=== PATIENT | male | born 1975 | race Caucasian/White ===

== ENCOUNTER 2021-03-04 06:51 | Emergency (ER) | payer OTHER ==
[2021-03-04 07:21] LABS: Absolute Lymphocytes (CBC) 0.9 K/uL (0.7-4.9); Basophils % 0.5 % (0-1.3); Hematocrit 45.7 % (39.6-49.0); Lymphocytes % 5.7 % (15.3-44.8); MPV 8.2 fL (7.6-11.3); RBC Red Blood Cell Count 5.17 M/uL (4.33-5.43)
[2021-03-04 07:29] LABS: Protime INR 1.21
[2021-03-04 07:44] LABS: Albumin 2.4 g/dL (3.4-5.0); Bilirubin Direct 0.6 mg/dL (0-0.2); Bilirubin Total 1.1 mg/dL (0.2-1.0); Potassium 3.8 mmol/L (3.5-5.1); Protein, Total 6.9 g/dL (6.4-8.2); Troponin (Emerg Dept Use Only) 0.05 ng/mL (0.0-0.045)
--- NOTE | 2021-03-04 08:13 | RAD REPORT ---
EXAM DESCRIPTION: RAD - Chest Single View - 03/04/2021 8:07 am CLINICAL HISTORY: SOB COMPARISON: No comparisons FINDINGS: Mild diffuse bilateral airspace opacities. The heart size is within normal limits.No acute osseous abnormality. No significant pleural effusions or pneumothorax. IMPRESSION: Mild airspace disease bilaterally could reflect either edema or pneumonia.
[2021-03-04] MEDS ORDERED: NA CHLORIDE 0.9% 2,000 ML ONE (08:57)
[2021-03-04] MEDS ORDERED: dexAMETHasone 10 MG/ML VIAL ONE (08:57)
--- NOTE | 2021-03-04 09:16 | EDPHYS ---
Physician Documentation [facility] Name: Ronald Gill Age: 46 yrs Sex: Male : 1975 Arrival Date: 03/04/2021 Time: 06:56 Bed 2 Private MD: ED Physician Willian Liu HPI: 03/04 09:15 This 46 yrs old Male presents to ER via EMS with complaints of Shortness Of kdr Breath. 07:26 The patient has shortness of breath The patient was brought to the emergency department kdr by EMS. He was noted to be disoriented at home. He has been diagnosed with Covid last . He had interacted but not gone to the [facility] yesterday. EMS reports that the patient was very disoriented initially and that his oxygen saturation was 57% on room air. When they were able to get the patient into the ambulance and get oxygen on him, his saturation improved to the mid 80s. Patient became less disoriented once on oxygen. On my initial evaluation the patient was alert and oriented x3 and his only complaint was of shortness of breath. Onset: The symptoms/episode began/occurred gradually, 1 week(s) ago. Duration: The symptoms are continuous. The patient's shortness of breath is aggravated by exertion, light activity. Associated signs and symptoms: The patient has no apparent associated signs or symptoms. Severity of symptoms: At their worst the symptoms were moderate in the emergency department the symptoms are unchanged. It is unknown whether or not the patient has had similar symptoms in the past. The patient has been recently seen by a physician: the patient's primary care provider, The patient is normally seen at the [facility]. Historical: - Allergies: 07:02 PENICILLINS; em 07:02 Tylenol-Codeine #3; em - PMHx: 07:02 None; em - PSHx: 07:02 Appendectomy; Tonsillectomy; em - Immunization history:: Client reports receiving the 1st dose of the Covid vaccine. - Social history:: Smoking status: Patient denies any tobacco usage or history of. ROS: 07:26 Constitutional: Negative for fever, chills, and weight loss, Eyes: Negative for injury, kdr pain, redness, and discharge, ENT: Negative for injury, pain, and discharge, Neck: Negative for injury, pain, and swelling, Cardiovascular: Negative for chest pain, palpitations, and edema, Back: Negative for injury and pain, : Negative for injury, bleeding, discharge, and swelling, MS/Extremity: Negative for injury and deformity, Skin: Negative for injury, rash, and discoloration, Neuro: Negative for headache, weakness, numbness, tingling, and seizure activity. Psych: Negative for depression, anxiety, suicide ideation, homicidal ideation, and hallucinations, Allergy/Immunology: Negative for hives, rash, and allergies, Endocrine: Negative for neck swelling, polydipsia, polyuria, polyphagia, and marked weight changes, Hematologic/Lymphatic: Negative for swollen nodes, abnormal bleeding, and unusual bruising. 07:26 Respiratory: Positive for shortness of breath, at rest. Negative for hemoptysis, pleurisy, sputum production. 07:26 Abdomen/GI: Positive for nausea and vomiting. Exam: 07:26 Constitutional: This is a well developed, well nourished patient who is awake, alert, kdr and in mild distress. Head/Face: Normocephalic, atraumatic. Eyes: Pupils equal round and reactive to light, extra-ocular motions intact. Lids and lashes normal. Conjunctiva and sclera are non-icteric and not injected. Cornea within normal limits. Periorbital areas with no swelling, redness, or edema. Neck: Trachea midline, no thyromegaly or masses palpated, and no cervical lymphadenopathy. Supple, full range of motion without nuchal rigidity, or vertebral point tenderness. No Meningismus. Chest/axilla: Normal chest wall appearance and motion. Nontender with no deformity. No lesions are appreciated. Cardiovascular: Regular rate and rhythm with a normal S1 and S2. No gallops, murmurs, or rubs. Normal PMI, no JVD. No pulse deficits. Abdomen/GI: Soft, non-tender, with normal bowel sounds. No distension or tympany. No guarding or rebound. No evidence of tenderness throughout. Back: No spinal tenderness. No costovertebral tenderness. Full range of motion. Skin: Warm, dry with normal turgor. Normal color with no rashes, no lesions, and no evidence of cellulitis. MS/ Extremity: Pulses equal, no cyanosis. Neurovascular intact. Full, normal range of motion. Neuro: Awake and alert, GCS 15, oriented to person, place, time, and situation. Cranial nerves II-XII grossly intact. Motor strength 5/5 in all extremities. Sensory grossly intact. Cerebellar exam normal. Normal gait. Psych: Awake, alert, with orientation to person, place and time. Behavior, mood, and affect are within normal limits. 07:26 ECG was reviewed by the Attending Physician. 07:26 Respiratory: mild respiratory distress is noted, Respirations: normal, Breath sounds: Patient has diminished breath sounds on the right. Vital Signs: 06:56 BP 130 / 63; Pulse 115; Resp 52; Temp 99.0; Pulse Ox 79% on Non-rebreather mask; Weight em 122.47 kg; Height 5 ft. 10 in. (177.80 cm); Pain 4/10; 08:28 BP 102 / 84; Pulse 103; Resp 31; Pulse Ox 90% on BiPAP; Pain 0/10; jl7 08:55 BP 105 / 89; Pulse 100; Resp 30; Pulse Ox 90% on BiPAP; jl7 11:00 BP 108 / 75; Pulse 92; Resp 30; Pulse Ox 89% on 100% BiPAP; zb 06:56 Body Mass Index 38.74 (122.47 kg, 177.80 cm) em MDM: 07:26 Data reviewed: vital signs, nurses notes, lab test result(s), radiologic studies. kdr Counseling: I had a detailed discussion with the patient and/or guardian regarding: the historical points, exam findings, and any diagnostic results supporting the discharge/admit diagnosis, lab results, radiology results, the need for further work-up and treatment in the hospital. 09:15 Patient medically screened. kdr 09:15 Differential diagnosis: Bronchitis CHF exacerbation, Chronic Obstructive Pulmonary kdr Disease pneumonia, Pneumothorax pulmonary edema. Response to treatment: the patient's symptoms have markedly improved after treatment. 03/04 07:03 Order name: Amylase, Serum; Complete Time: 09:09 kdr 03/04 07:03 Order name: Basic Metabolic Panel; Complete Time: 09:09 kdr 03/04 07:03 Order name: Blood Culture Adult (2) kdr 03/04 07:03 Order name: CBC with Diff kdr 03/04 07:03 Order name: CPK; Complete Time: 09:09 kdr 03/04 07:03 Order name: Ckmb; Complete Time: 09: kdr 03/04 07:03 Order name: LFT's; Complete Time: 09:09 kdr 03/04 07:03 Order name: Lactate; Complete Time: 09:09 kdr 03/04 07:03 Order name: Lipase; Complete Time: 09:09 kdr 03/04 07:03 Order name: Procalcitonin; Complete Time: 09:09 kdr 08 07:03 Order name: Protime (+inr); Complete Time: 09:09 kdr 03/04 07:03 Order name: Ptt, Activated; Complete Time: 09:09 kdr 03/04 07:03 Order name: Troponin (emerg Dept Use Only); Complete Time: 09:09 kdr 03/04 07:03 Order name: Chest Single View XRAY; Complete Time: 09: kdr 03/04 07:03 Order name: Accucheck; Complete Time: 08:32 kdr 03/04 07:03 Order name: Cardiac monitoring; Complete Time: 08:32 kdr 03/04 07:03 Order name: EKG - Nurse/Tech; Complete Time: 07:26 kdr 03/04 07:03 Order name: IV Saline Lock - Large Bore; Complete Time: 08:32 kdr 03/04 07:03 Order name: Labs collected and sent; Complete Time: 08:32 kdr 03/04 07:03 Order name: O2 Per Protocol; Complete Time: 08:32 kdr 03/04 07:03 Order name: O2 Sat Monitoring; Complete Time: 08:32 kdr 03/04 07:03 Order name: Urine Dipstick-Ancillary (obtain specimen); Complete Time: 08:32 kdr 03/04 07:34 Order name: CBC Smear Scan EDOH 03/04 09:22 Order name: EKG Electrocardiogram EDOH 03/04 11:07 Order name: Lactate Sepsis 2 HR Follow-up EDMS EC:26 Rate is 108 beats/min. Rhythm is regular, Sinus tachycardia with No ectopy. QRS [place] is kdr Normal. NC interval is normal. QRS interval is normal. QT interval is normal. Clinical impression: NSR w/ Non-specific ST/T Changes and Sinus tachycardia. Administered Medications: 08:50 Drug: NS 0.9% (30 ml/kg) 30 ml/kg Route: IV; Rate: bolus; Site: right antecubital; jl7 10:00 Follow up: Response: No adverse reaction; IV Status: Completed infusion; IV Intake: jl7 1000ml ; Per Dr. Liu 08:50 Drug: Decadron - Dexamethasone 10 mg Route: IVP; Site: right antecubital; jl7 10:14 Follow up: Response: No adverse reaction jl7 10:14 Not Given (Physician Discretion): REGEN-COV Dose Pack 120 mg/mL-120 mg/mL (EUA) 1 vials jl7 IV at 1 units/hr bolus 10:40 Drug: Ivermectin 12 mg Route: PO; zb 11:23 Follow up: Response: No adverse reaction zb Disposition Summary: 03/04/21 09:15 Transfer Ordered Transfer Location: [facility] kdr Reason: Higher level of care kdr Condition: Fair kdr Problem: an acute exacerbation kdr Symptoms: have improved kdr Accepting Physician: Rukhsana(03/04/21 11:46) zb Diagnosis - SARS-associated coronavirus as the cause of diseases classified elsewhere kdr - Acute respiratory failure with hypoxia - 57% on room air kdr - Shortness of breath kdr - Other viral pneumonia kdr Discharge Instructions: - Discharge Summary Sheet jl7 Forms: - Medication Reconciliation Form kdr - SBAR form jl7 Signatures: Dispatcher [employer] Willian Pabon MD MD kdr Munoz, Edgar, RN RN em Leal, Jahala, RN RN jl7 Brown, Zipporah, RN RN zerik Corrections: (The following items were deleted from the chart) 11:46 09:15 Rukhsana kdr zb
--- NOTE | 2021-03-04 09:16 | ER ---
Nurse's Notes [facility] Name: Ronald Gill Age: 46 yrs Sex: Male : 1975 Arrival Date: 03/04/2021 Time: 06:56 Bed 2 Private MD: Diagnosis: SARS-associated coronavirus as the cause of diseases classified elsewhere;Acute respiratory failure with hypoxia-57% on room air;Shortness of breath;Other viral pneumonia Presentation: 03/04 06:56 Chief complaint: EMS states: called out for shortness of breath, has have covid since em February 09, has been taking the medications that have been prescribed with no results, on scene pt was 57% at home, placed on a NRB at 15 LPM, SPO2 now 83%. Coronavirus screen: chills, difficulty breathing, fever, Client presents with at least one sign or symptom that may indicate coronavirus-19. Standard/surgical mask placed on the client. Provider contacted for isolation considerations. Ebola Screen: Patient negative for fever greater than or equal to 101.5 degrees Fahrenheit, and additional compatible Ebola Virus Disease symptoms Patient denies exposure to infectious person. Patient denies travel to an Ebola-affected area in the 21 days before illness onset. No symptoms or risks identified at this time. Initial Sepsis Screen: Does the patient meet any 2 criteria? RR > 20 per min. HR > 90 bpm. Yes Does the patient have a suspected source of infection? Yes: Productive cough/pneumonia. Risk Assessment: Do you want to hurt yourself or someone else? Patient reports no desire to harm self or others. Onset of symptoms was March 04, 2021. 06:56 Method Of Arrival: EMS: [facility] em 06:56 Acuity: SALOME 1 em Historical: - Allergies: 07:02 PENICILLINS; em 07:02 Tylenol-Codeine #3; em - PMHx: 07:02 None; em - PSHx: 07:02 Appendectomy; Tonsillectomy; em - Immunization history:: Client reports receiving the 1st dose of the Covid vaccine. - Social history:: Smoking status: Patient denies any tobacco usage or history of. Screenin:31 Abuse screen: Denies threats or abuse. Denies injuries from another. Nutritional jl7 screening: No deficits noted. Tuberculosis screening: No symptoms or risk factors identified. Fall Risk IV access (20 points). Total Bell Fall Scale indicates No Risk (0-24 pts). Assessment: 08:50 General: Appears in no apparent distress. uncomfortable, Behavior is calm, cooperative, jl7 appropriate for age. Pain: Denies pain. Neuro: Level of Consciousness is awake, alert, obeys commands, Oriented to person, place, time, situation. Cardiovascular: Denies chest pain, Rhythm is sinus tachycardia. Respiratory: Airway is patent Respiratory effort is even, unlabored, Respiratory pattern is regular, symmetrical, On BiPap Breath sounds are diminished bilaterally. Derm: Skin is pink, warm \T\ dry. 10:30 Reassessment: Patient appears in no apparent distress at this time. Patient and/or zb family updated on plan of care and expected duration. Pain level reassessed. Patient remains on bipap. 11:21 Reassessment: Report given to EMS. zb Vital Signs: 06:56 BP 130 / 63; Pulse 115; Resp 52; Temp 99.0; Pulse Ox 79% on Non-rebreather mask; Weight em 122.47 kg; Height 5 ft. 10 in. (177.80 cm); Pain 4/10; 08:28 BP 102 / 84; Pulse 103; Resp 31; Pulse Ox 90% on BiPAP; Pain 0/10; jl7 08:55 BP 105 / 89; Pulse 100; Resp 30; Pulse Ox 90% on BiPAP; jl7 11:00 BP 108 / 75; Pulse 92; Resp 30; Pulse Ox 89% on 100% BiPAP; zb 06:56 Body Mass Index 38.74 (122.47 kg, 177.80 cm) em ED Course: 06:56 Patient arrived in ED. em 07:02 Triage completed. em 07:02 Arm band placed on. em 07:03 Willian Liu MD is Attending Physician. kdr 07:26 EKG done, by ED staff, reviewed by Willina Liu MD. em1 07:40 Sarah Palomares, SULMA is Primary Nurse. jl7 07:47 initiated transfer to [facility]. bd 08:07 Chest Single View XRAY In Process Unspecified. EDMS 08:31 Patient has correct armband on for positive identification. Bed in low position. Call jl7 light in reach. Side rails up X2. cardiac monitor on. Pulse ox on. NIBP on. Warm blanket given. 08:31 Maintain EMS IV. Dressing intact. Good blood return noted. Site clean \T\ dry. Gauge \T\ jl 7 site: 18 right AC. 09:35 No provider procedures requiring assistance completed. Patient transferred, IV remains jl7 in place. intact, No redness/swelling at site. 10:08 Repeat lab(s) drawn. by wy, sent to lab. jl7 10:20 Report received from SULMA Smith. zb 11:24 Primary Nurse role handed off by Sarah Palomares RN zerik 11:24 Jess Sandhu, RN is Primary Nurse. zb Administered Medications: 08:50 Drug: NS 0.9% (30 ml/kg) 30 ml/kg Route: IV; Rate: bolus; Site: right antecubital; jl7 10:00 Follow up: Response: No adverse reaction; IV Status: Completed infusion; IV Intake: jl7 1000ml ; Per Dr. Liu 08:50 Drug: Decadron - Dexamethasone 10 mg Route: IVP; Site: right antecubital; jl7 10:14 Follow up: Response: No adverse reaction jl7 10:14 Not Given (Physician Discretion): REGEN-COV Dose Pack 120 mg/mL-120 mg/mL (EUA) 1 vials jl7 IV at 1 units/hr bolus 10:40 Drug: Ivermectin 12 mg Route: PO; zb 11:23 Follow up: Response: No adverse reaction zb Intake: 10:00 IV: 1000ml; Total: 1000ml. jl7 Outcome: 09:15 ER care complete, transfer ordered by . kdr 11:30 Transferred by ground EMS to [facility] Transfer form completed. zb 11:30 Condition: stable 11:30 Instructed on the need for transfer. 11:46 Patient left the ED. zb Signatures: Dispatcher [employer] EDMS Jennifer Castellanos Kevin, MD MD kdr Munoz, Edgar RN RN Ovi Kellogg em1 Sarah Palomares RN RN jl7 Brown, Zipporah, RN RN zerik Corrections: (The following items were deleted from the chart) 07:19 06:56 Chief complaint: EMS states: called out for shortness, has have covid since January, has been taking the medications have have been prescribed with no results, on scene pt was 57% at home, placed on a NRB at 15 LPM, SPO2 now 83% em 09: 06:56 Chief complaint: EMS states: called out for shortness, has have covid since January, has been taking the medications that have been prescribed with no results, on scene pt was 57% at home, placed on a NRB at 15 LPM, SPO2 now 83% em
[2021-03-04] MEDS ORDERED: IVERMECTIN 3 MG TABLET PO ONE (10:00)
[2021-03-04 11:02] LABS: Blood Morphology Comment NOT SEEN (NOT SEEN); Platelet Estimate ADEQ; White Blood Cell Scan OK (OK)
[2021-03-04 12:19] VITALS: TEMP 99
[2021-03-04 12:25] VITALS: BP 108/75; O2SAT 89
--- NOTE | 2021-03-04 13:00 | EKG ---
Test Date: 2021-03-04 Test Time: 07:13:38 Dialysis Equipment Technician: AKILAH MEASUREMENT RESULTS: Intervals: Rate: 108 WI: 130 QRSD: 90 QT: 344 QTc: 460 [place]: P: 63 WI: 130 QRS: 18 T: 29 INTERPRETIVE STATEMENTS: Sinus tachycardia Otherwise normal ECG No previous ECG available for comparison Electronically Signed On 03-04-21 12:59:13 CDT by Hamilton Fleming
== END 2021-03-04 11:46 ==
LOC: ER 06:51
DX: U07.1 COVID-19 (principal); J12.89 Other viral pneumonia; J96.01 Acute respiratory failure with hypoxia; Z88.0 Allergy status to penicillin; Z88.5 Allergy status to narcotic agent
CPT/HCPCS: 96365; 93005; 87040 ×2; 85025; 80048; 36415; 82150; 82550; 85610; 80076; 83605 ×2; 85730; 84484; 82553; 83690; 84145; 71045; 94760; 94660; 96375; 99291; 99292; J1100; J7030